=== PATIENT | female | born 1945 | race African-American/Black ===

== ENCOUNTER 2017-07-23 16:16 | Emergency (ER) | payer BC ==
[2017-07-23 16:40] VITALS: BP 147/86
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
== END 2017-07-23 17:12 | disposition home or self-care (01) ==
LOC: UCCORT 16:16
DX: T50.A95A Adverse effect of other bacterial vaccines, initial encounter (principal); Z88.6 Allergy status to analgesic agent; Z88.3 Allergy status to other anti-infective agents; Z88.5 Allergy status to narcotic agent; Z88.0 Allergy status to penicillin; Z88.2 Allergy status to sulfonamides; J45.909 Unspecified asthma, uncomplicated
CPT/HCPCS: 99212; G0463

== ENCOUNTER 2017-10-27 10:01 | Emergency (ER) | payer BC ==
[2017-10-27 10:21] VITALS: BP 137/74
[2017-10-27] MEDS ORDERED: Ondansetron ODT TAB* 4 MG PO ONE (10:57)
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
--- NOTE | 2017-10-28 18:48 | UC ---
- Progress Note Progress Note: Pt called today requesting Flagyl and Zofran written by Dr. Rafael MULLEN. Changed and sent to pharmacy
== END 2017-10-27 11:51 | disposition home or self-care (01) ==
LOC: UCEAST 10:01
DX: K52.9 Noninfective gastroenteritis and colitis, unspecified (principal); I10 Essential (primary) hypertension; Z88.1 Allergy status to other antibiotic agents; Z88.5 Allergy status to narcotic agent; Z88.6 Allergy status to analgesic agent; Z88.0 Allergy status to penicillin; Z88.2 Allergy status to sulfonamides; Z88.8 Allergy status to other drugs, medicaments and biological substances; Z87.891 Personal history of nicotine dependence
CPT/HCPCS: 87502; 99212; A9270-GY; G0463

== ENCOUNTER 2019-03-22 13:15 | Emergency (ER) | payer BC, OTHER ==
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
[2019-03-22] MEDS: Acetaminophen TAB* 325 MG PO ONE (16:27)
[2019-03-22 16:39] VITALS: BP 150/80
== END 2019-03-22 16:36 | disposition home or self-care (01) ==
LOC: UCEAST 13:15
DX: S93.491A Sprain of other ligament of right ankle, initial encounter (principal); I10 Essential (primary) hypertension; M25.551 Pain in right hip; Z88.8 Allergy status to other drugs, medicaments and biological substances; Z88.0 Allergy status to penicillin; Z88.1 Allergy status to other antibiotic agents; Z88.2 Allergy status to sulfonamides; Z91.013 Allergy to seafood; Z87.891 Personal history of nicotine dependence; Y04.8XXA Assault by other bodily force, initial encounter; W18.39XA Other fall on same level, initial encounter; Y92.9 Unspecified place or not applicable
CPT/HCPCS: 99213; A9270-GY; G0463

== ENCOUNTER 2019-08-26 11:34 | Emergency (ER) | payer SELFPAY ==
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
--- OUTSIDE RECORDS SUMMARY | 2019-08-26 12:33 | XMS REPORT | Continuity of Care Document ---
:1945 External Reference #:[id number] Author Name Esteban Gatica NP (transmitted by agent of provider Isis Haskins) Address [address], [place] [address] Care Team Providers Name Role Phone Maria E Purvis M.D. - Family Medicine Care Team Information Short Haul Driver [phone] Karen Egan MD - Cardiovascular Care Team Information Short Haul Driver Disease Problems Active Problems Provider Date Allergic rhinitis due to pollen Pedro Luis Busby M.D. Onset: 04/05/2015 Hyperlipidemia Karen Egan M.D. Onset: 07/16/2015 Essential hypertension Karen Egan M.D. Onset: 07/16/2015 Right bundle branch block Karen Egan M.D. Onset: 10/22/2015 Anxiety state Esteban Gatica NP Onset: 08/11/2017 Allergic asthma without status asthmaticus Esteban Gatica NP Onset: 08/11/2017 Migraine Esteban Gatica NP Onset: 08/11/2017 Sprain of distal tibiofibular ligament Edison Colmenares MD Onset: 03/25/2019 Essential hypertension Karen Egan M.D. Onset: 01/06/2019 Mixed hyperlipidemia Karen Egan M.D. Onset: 04/27/2018 Social History Type Date Description Comments Sex Unknown Cigarette Use Quit 30 Years Ago Tobacco Use Start: Unknown Never Smoked Cigars Tobacco Use Start: Unknown Never Smoked A Pipe Smokeless Tobacco Never Used Smokeless Tobacco ETOH Use consumes 1-2 glasses of wine per day Tobacco Use Start: Unknown End: Patient is a former Patient reports Unknown smoker social cigarette smoking in past. Quit smoking over 30 years ago, reports cigarette use was on average 1 cigarette per month. Smoking Status Reviewed: 07/13/19 Patient is a former Patient reports smoker social cigarette smoking in past. Quit smoking over 30 years ago, reports cigarette use was on average 1 cigarette per month. Exercise Exercises regularly Type/Frequency Allergies, Adverse Reactions, Alerts Active Allergies Reaction Severity Comments Date Penicillin 04/05/2015 Sulfa Antibiotics Urticaria 04/05/2015 Aspirin rectal bleeding 04/05/2015 Darvon 07/11/2015 Atorvastatin migrane headaches 07/11/2015 Erythromycin 07/16/2015 Bananas Nausea and Vomiting Bananas 07/23/2015 Canteloupe Nausea and Vomiting Canteloupe 07/23/2015 Melon Nausea and Vomiting 07/23/2015 Seafood Nausea and Vomiting 07/23/2015 Medications Active Medications SIG Qnty Indications Ordering Date Provider Clonazepam 1/2-1 tab by mouth 30tabs F41.9 Esteban Gatica NP 07/13/2019 0.5mg twice a day as Tablets needed anxiety. Tricor 1 by mouth every 90tabs Karen Egan, 01/24/2019 145mg day M.D. Tablets Wellbutrin XL 3 tablets by mouth 270tabs F32.89 Esteban Gatica NP 07/01/2018 150mg every day Tablets ER 24HR Diclofenac Sodium apply 2 grams to 100gm M25.511 Esteban Gatica NP 06/18/2018 affected area twice 1% Gel daily Vitamin D3 Take One By Mouth 30caps Esteban Gatica NP 02/23/2018 5000Unit Every Day Capsules Nasonex 2 sprays to each 180gm Esteban Gatica NP 02/23/2018 50mcg/Act nostril twice daily Suspension Lidoderm 12 hours on 12 30units Esteban Gatica NP 02/23/2018 5% Patches hours off to affected area as needed Singulair 1 tab PO qd 90tabs Esteban Gatica NP 01/28/2018 10mg Tablets Norvasc Take 1 Tablet By 90tabs Esteban Gatica NP 09/09/2017 5mg Tablets Mouth Once Daily Lexapro take 1 tablet by 90tabs Esteban Gatica NP 08/06/2017 20mg mouth every day Tablets Dulera 2 puff twice daily Unknown 200-5mcg/Act Aerosol Xyzal once daily Unknown 5mg Tablets Xopenex HFA 1 to 2 inhalations Unknown twice daily needed 45mcg/Act Aerosol rescue inhaler B12 1 tab once a day Unknown 5000mcg Tablets Dispers History Medications Tessalon Perles 1-2 by mouth 30caps Esteban Gatica, ZAINAB 04/25/2019 - 100mg three times a day 07/13/2019 Capsules as needed Cheratussin ac 5-10ml every 6 473ml J06.9 Esteban Gatica NP 04/25/2019 - hours as needed 07/13/2019 100-10mg/5ML Solution cough. Lidocaine Viscous HCL gargle 15ml every 100ml J06.9 Esteban Gatica NP 2018 - 6 hours as needed 05/02/2019 2% Solution Xanax 1/2 - 1 tablet by 30tabs F41.9 Esteban Gatica NP 04/12/2019 - 0.25mg Tablets mouth twice daily 07/13/2019 as needed for anxiety Triglide one tab every Karen [place], 01/18/2019 - 160mg Tablets day. ( 0n back M.D. 02/02/2019 order) Immunizations Description No Information Available Vital Signs Date Vital Result Comment 07/13/2019 4:27pm Height 62 inches 5'2" Weight 112.00 lb Heart Rate 84 /min BP Systolic Sitting 148 mmHg BP Diastolic Sitting 95 mmHg BP Systolic Recheck 136 mmHg BP Diastolic Recheck 86 mmHg Body Temperature 97.9 F O2 % BldC Oximetry 97 % BMI (Body Mass Index) 20.5 kg/m2 04/25/2019 3:45pm Height 62 inches 5'2" Weight 116.00 lb Heart Rate 83 /min BP Systolic 127 mmHg BP Diastolic 79 mmHg Body Temperature 97.9 F O2 % BldC Oximetry 99 % BMI (Body Mass Index) 21.2 kg/m2 Results Test Date Facility Test Result H/L Range Note Lipid Profile 05/30/2019 [facility] Triglycerides 267 mg/dL 1 (Trig/Chol/HDL) [address] [place] [address] [phone] Cholesterol 239 mg/dL 2 HDL Cholesterol 61.6 mg/dL 3 LDL Cholesterol 124 mg/dL 4 1 Desirable: <150 Borderline High: 150-199 High: 200-499 Very High: >500 2 Desirable: <200 Borderline High: 200-239 High: >239 3 Low: <40 Desirable: 40-60 High: >60 4 Desirable: <100 Near Optimal: 100-129 Borderline High: 130-159 High: 160-189 Very High: >189 Procedures Description No Information Available Medical Devices Description No Information Available Encounters Type Date Location Provider Dx Diagnosis Office Visit 04/25/2019 [facility] Esteban Gatica NP J06.9 Acute upper 3:40p Medicine - [facility] respiratory infection, unspecified Office Visit 04/12/2019 [facility] Internal Esteban Gatica NP Z01.818 Encounter for other 10:20a Medicine - [facility] preprocedural examination H26.9 Unspecified cataract I10 Essential (primary) hypertension F41.9 Anxiety disorder, unspecified J45.20 Mild intermittent asthma, uncomplicated Office Visit 03/25/2019 [facility] Edisonboby Colmenares, S93.431A Sprain of 11:00a Services Of tibiofibular C.M.A. ligament of right ankle, init encntr Office Visit 02/03/2019 [facility] Internal Esteban Gatica NP Z01.818 Encounter for 4:20p Medicine - [facility] other preprocedural examination H26.9 Unspecified cataract I10 Essential (primary) hypertension F41.9 Anxiety disorder, unspecified F32.89 Other specified depressive episodes J45.20 Mild intermittent asthma, uncomplicated Assessments Date Code Description Provider 07/13/2019 Z01.818 Encounter for other preprocedural examination Esteban En , RECORDS MANAGEMENT DIRECTOR 07/13/2019 H26.9 Unspecified cataract Esteban En, RECORDS MANAGEMENT DIRECTOR 07/13/2019 F41.9 Anxiety disorder, unspecified Esteban En, RECORDS MANAGEMENT DIRECTOR 07/13/2019 I10 Essential (primary) hypertension Esteban En, RECORDS MANAGEMENT DIRECTOR 07/13/2019 J45.20 Mild intermittent asthma, uncomplicated Esteban En, RECORDS MANAGEMENT DIRECTOR 07/13/2019 M25.519 Pain in unspecified shoulder Esteban En, RECORDS MANAGEMENT DIRECTOR 04/25/2019 J06.9 Acute upper respiratory infection, unspecified Esteban En, RECORDS MANAGEMENT DIRECTOR 04/12/2019 Z01.818 Encounter for other preprocedural examination Esteban En , RECORDS MANAGEMENT DIRECTOR 04/12/2019 H26.9 Unspecified cataract Esteban En, RECORDS MANAGEMENT DIRECTOR 04/12/2019 I10 Essential (primary) hypertension Esteban En, RECORDS MANAGEMENT DIRECTOR 04/12/2019 F41.9 Anxiety disorder, unspecified Esteban En, RECORDS MANAGEMENT DIRECTOR 04/12/2019 J45.20 Mild intermittent asthma, uncomplicated Esteban En, RECORDS MANAGEMENT DIRECTOR 03/25/2019 S93.431A Sprain of tibiofibular ligament of right ankle, Edison Colmenares MD initial enco 02/03/2019 Z01.818 Encounter for other preprocedural examination Esteban En , RECORDS MANAGEMENT DIRECTOR 02/03/2019 H26.9 Unspecified cataract Esteban En, RECORDS MANAGEMENT DIRECTOR 02/03/2019 I10 Essential (primary) hypertension Esteban En, RECORDS MANAGEMENT DIRECTOR 02/03/2019 F41.9 Anxiety disorder, unspecified Esteban En, RECORDS MANAGEMENT DIRECTOR 02/03/2019 F32.89 Other specified depressive episodes Esteban En, RECORDS MANAGEMENT DIRECTOR 02/03/2019 J45.20 Mild intermittent asthma, uncomplicated Esteban En, ZAINAB Plan of Treatment 07/13/2019 - Esteban Gatica NPZ01.818 Encounter for other preprocedural mpaukvidlgpW42.9 Unspecified uitcbxiyQ23.9 Anxiety disorder, unspecifiedNew Medication:Clonazepam 0.5 mg - 1/2-1 tab by mouth twice a day as needed anxiety.Comments:I have prescribed the clonazepam that we discussed. This may make you tired.I10 Essential (primary) rxrxlzgepgstZ47.20 Mild intermittent asthma, kooizcgyevqbeF59.519 Pain in unspecified shoulderNew Therapy:Physical Therapy Functional Status Description No Information Available Mental Status Description No Information Available Referrals Description No Information Available
--- OUTSIDE RECORDS SUMMARY | 2019-08-26 12:33 | XMS REPORT | Continuity of Care Document ---
:1945 External Reference #:[id number] Author Name Pedro Luis Busby M.D. Address [address] [place] [address] Care Team Providers Name Role Phone Esteban Gatica NP - Nurse Practitioner Care Team Information Vessel Ordinary Seaman [phone] Problems Active Problems Provider Date Essential hypertension Pedro Luis Busby M.D. Onset: 04/06/2012 Acute upper respiratory infection Pedro Luis Busby M.D. Onset: 2014 Acute laryngitis Pedro Luis Busby M.D. Onset: 09/25/2014 Exacerbation of asthma Pedro Luis Busby M.D. Onset: 08/15/2014 Acute bronchitis Pedro Luis Busby M.D. Onset: 02/28/2014 Esophageal dysphagia Pedro Luis Busby M.D. Onset: 05/25/2013 Allergic rhinitis Pedro Luis Busby M.D. Onset: 05/25/2013 Asthma without status asthmaticus Pedro Luis Busby M.D. Onset: 2012 Cough variant asthma Pedro Luis Busby M.D. Onset: 04/06/2012 Social History Type Date Description Comments Sex Unknown Tobacco Use Start: Unknown End: Former Social Smoker Unknown Smoking Status Reviewed: 08/07/19 Former Social Smoker Tobacco Use Start: Unknown Never Smoked Cigars Tobacco Use Start: Unknown Never Smoked A Pipe Smokeless Tobacco Never Used Smokeless Tobacco ETOH Use Does not drink alcohol Tobacco Use Start: Unknown End: Patient is a former smoker Quit May 2012 Unknown Allergies, Adverse Reactions, Alerts Active Allergies Reaction Severity Comments Date Darvon 04/06/2012 Aspirin 04/06/2012 Oxiconton 04/06/2012 Erythromycin 04/06/2012 Crestor 08/15/2014 Flu Virus Vaccine 01/12/2015 Medications Active Medications SIG Qnty Indications Ordering Provider Date Singulair take 1 tablet by 90tabs J45.909 Pedro Luis Peraza 10/11/2018 10mg mouth every day Ernesto Busby Tablets Dulera 2 puff twice a 3months Pedro Luis Peraza 04/03/2014 200-5mcg/Act day Ernesto Busby Aerosol Xopenex HFA 2 puffs as needed 2units J45.991 Pedro Luis Peraza 08/16/2013 45mcg/Act Ernesto Busby Aerosol Norvasc daily Unknown 5mg Nasonex instill 2 sprays 3units Pedro Luis Peraza 50mcg/Act in each nostril Ernesto Busby Suspension every day Lexapro daily En STAINED GLASS INSTALLER, Esteban 20mg Tablets Xyzal Allergy 24HR 1 by mouth every 90tabs Pedro Luis Peraza day Ernesto Busby 5mg Tablets Wellbutrin XL TK 1 T PO qd For Unknown 150mg 1 Week. Increase Tablets ER 24HR To TK 2 TS PO qd Benzonatate 1-2 caps 3 times Unknown 100mg daily Capsules Xanax 1-2 tabs twice En LAMB, Esteban 0.25mg Tablets daily Klonopin TK 1/2 To 1 T PO Unknown 0.5mg bid prn. MDD 2 TS Tablets Vitamin B12 1 by mouth every Unknown 500mcg day Tablets Cheratussin ac as needed Unknown 100-10mg/5ML Solution Tricor 1 by mouth daily Unknown 145mg Tablets Diclofenac Sodium apply 2 grams to Unknown 1% affected area Gel History Medications Astepro instill 1 spray 30units J30.89 Pedro Luis Peraza 04/22/2019 - 0.15% each nostril Ernesto Busby 08/07/2019 Solution every day Immunizations CPT Code Status Date Vaccine Lot # [id number] Refused 01/12/2015 Prevnar 13 For Intramuscular Use 37779 Refused 01/12/2015 Influenza Virus Vaccine, 3 Years Of Age And Above, Intramuscular Vital Signs Date Vital Result Comment 08/08/2019 1:49pm Weight 108.00 lb Weight 48.989 kg Height 62.50 inches 5'2.50" Height in cm's 158.8 cm BMI (Body Mass Index) 19.4 kg/m2 04/22/2019 12:08pm Weight 110.00 lb Weight 49.896 kg Height 62.50 inches 5'2.50" Height in cm's 158.8 cm BMI (Body Mass Index) 19.8 kg/m2 Results Description No Information Available Procedures Date Code Description Status 04/22/2019 83446 Nasal Endoscopy, Diagnostic Completed Medical Devices Description No Information Available Encounters Type Date Location Provider Dx Diagnosis Office Visit 08/08/2019 [place] Pedro Luis Erazo Other allergic 1:30p 10/26/07 Ernesto Busby rhinitis J45.40 Moderate persistent asthma, uncomplicated B08.5 Enteroviral vesicular pharyngitis Office Visit 04/22/2019 11:15a [place] 10/26/07 Ciarra Erazo Other allergic YOLIS Rosas rhinitis J45.40 Moderate persistent asthma, uncomplicated H69.82 Other specified disorders of Eustachian tube, left ear Assessments Date Code Description Provider 08/08/2019 J30.89 Other allergic rhinitis Pedro Luis Busby M.D. 08/08/2019 J45.40 Moderate persistent asthma, Pedro Luis Busby M.D. uncomplicated 08/08/2019 B08.5 Enteroviral vesicular pharyngitis Pedro Luis Busby M.D. 04/22/2019 J30.89 Other allergic rhinitis Ciarra Rosas PA-C 04/22/2019 J45.40 Moderate persistent asthma, Ciarra Rosas PA-C uncomplicated 04/22/2019 H69.82 Other specified disorders of Eustachian Ciarra Rosas PA-C tube, left ear Plan of Treatment No Information Available Functional Status Description No Information Available Mental Status Description No Information Available Referrals Description No Information Available
[2019-08-26] MEDS ORDERED: oxyCODONE/Acetamin 5/325 MG* TAB PO ONE (14:41)
[2019-08-26 16:22] VITALS: BP 150/96
== END 2019-08-26 16:13 | disposition home or self-care (01) ==
LOC: ED 11:34
DX: S06.0X9A Concussion with loss of consciousness of unspecified duration, initial encounter (principal); S16.1XXA Strain of muscle, fascia and tendon at neck level, initial encounter; S70.01XA Contusion of right hip, initial encounter; M81.0 Age-related osteoporosis without current pathological fracture; M50.30 Other cervical disc degeneration, unspecified cervical region; W03.XXXA Other fall on same level due to collision with another person, initial encounter; Y92.212 Middle school as the place of occurrence of the external cause; Y99.0 Civilian activity done for income or pay; E78.00 Pure hypercholesterolemia, unspecified; I10 Essential (primary) hypertension; Z87.891 Personal history of nicotine dependence; Z79.899 Other long term (current) drug therapy; Z88.6 Allergy status to analgesic agent; Z88.1 Allergy status to other antibiotic agents; Z88.5 Allergy status to narcotic agent; Z88.0 Allergy status to penicillin; Z88.2 Allergy status to sulfonamides; Z88.8 Allergy status to other drugs, medicaments and biological substances
CPT/HCPCS: 70450; 72125; 72192; 99283; A9270-GY

== ENCOUNTER 2019-11-02 14:33 | Emergency (ER) | payer OTHER ==
--- NOTE | 2019-11-02 15:30 | ED ---
Headache - HPI Summary HPI Summary: This patient is a 74 year old female presenting to [facility] with a chief complaint of headaches. She states she fell at work 2 months ago and is having headaches. She states she is not comfortable walking and driving because she gets blurred vision. She states when she fell 2 months ago she hit her head against the wall on the way down. She states she has been doing PT for her back which was also injured but workers compensation has not approved PT for her neck and head. She has attempted to see a neurologist but they were unable to see her for 2 months. She denies vomiting. Medications reviewed, allergies noted. She reports Hx of HTN. - History Of Current Complaint Chief Complaint: EDHeadache Stated Complaint: CONCUSSION,FALLING PER PT Time Seen by Provider: 11/02/19 15:19 Hx Obtained From: Patient Onset/Duration: Started weeks ago Timing: Weeks - Allergies/Home Medications Allergies/Adverse Reactions: Allergies Allergy/AdvReac Type Severity Reaction Status Date / Time aspirin Allergy Severe GI bleed Verified 11/02/19 14:40 Penicillins Allergy Severe Rash Verified 11/02/19 14:40 propoxyphene Allergy Severe Nausea Verified 11/02/19 14:40 erythromycin base Allergy Intermediate Nausea Verified 11/02/19 14:40 hydrocodone Allergy Intermediate Hallucinati Verified 11/02/19 14:40 ons Sulfa (Sulfonamide Allergy Intermediate Rash Verified 11/02/19 14:40 Antibiotics) seafood Allergy Severe Rash And Uncoded 11/02/19 14:40 Itching GENERIC DRUGS Allergy Mild See Comment Uncoded 11/02/19 14:40 Home Medications: Home Medications Hydrocodone/Acetaminophen [Hydrocodone/Acetaminophen 5-325 mg] 1 tab PO Q6H 06/14 [History Confirmed 11/02/19] Levalbuterol HFA INHALER* [Xopenex Hfa Inhaler*] 1 - 2 puff INH BID PRN [History Confirmed 11/02/19] PMH/Surg Hx/FS Hx/Imm Hx Endocrine/Hematology History: Denies: Hx Diabetes, Hx Thyroid Disease Cardiovascular History: Reports: Hx Hypercholesterolemia, Hx Hypertension Denies: Hx Pacemaker/ICD Respiratory History: Reports: Hx Asthma Denies: Hx Chronic Obstructive Pulmonary Disease (COPD) GI History: Denies: Hx Ulcer History: Denies: Hx Renal Disease Musculoskeletal History: Reports: Hx Arthritis Sensory History: Reports: Hx Contacts or Glasses Denies: Hx Hearing Aid Opthamlomology History: Reports: Hx Contacts or Glasses Neurological History: Reports: Hx Migraine Denies: Hx Seizures Psychiatric History: Denies: Hx Panic Disorder - Surgical History Surgery Procedure, Year, and Place: Rt wrist surgeries after fractures 1998 x 3 ; breast reduction; wisdom teeth. right rotator cuff repair Infectious Disease History: No Infectious Disease History: Denies: Hx Clostridium Difficile, Hx Hepatitis, Hx Human Immunodeficiency Virus (HIV), Hx of Known/Suspected MRSA, Hx Shingles, Hx Tuberculosis, Hx Known/ Suspected VRE, Hx Known/Suspected VRSA, History Other Infectious Disease, Traveled Outside the [place] in Last 30 Days - Family History Known Family History: Positive: Cardiac Disease, Hypertension - Social History Alcohol Use: none since fall Alcohol Amount: 1 glass wine per day Substance Use Type: Reports: None Smoking Status (MU): Former Smoker Have You Smoked in the Last Year: No Review of Systems Positive: Blurred Vision Positive: Headache All Other Systems Reviewed And Are Negative: Yes Physical Exam - Summary Physical Exam Summary: Constitutional: Well-developed, Well-nourished, Alert. (-) Distressed Skin: Warm, Dry HENT: Normocephalic; Atraumatic Eyes: Conjunctiva normal Neck: Musculoskeletal ROM normal neck. (-) JVD, (-) Stridor, (-) Tracheal deviation Cardio: Rhythm regular, rate normal, Heart sounds normal; Intact distal pulses; Radial pulses are 2+ and symmetric. (-) Murmur Pulmonary/Chest wall: Effort normal. (-) Respiratory distress, (-) Wheezes, (-) Rales Abd: Soft, (-) tenderness, (-) Distension, (-) Guarding, (-) Rebound Musculoskeletal: (-) Edema Lymph: (-) Cervical adenopathy Neuro: Alert, Oriented x3, Strength normal, Cranial nerves II-XII are grossly intact. (-) Dysmetria, (-) Nystagmus, (-) Ataxia by finger to nose testing, (-) Sensory deficit. Psych: Mood and affect Normal Triage Information Reviewed: Yes Vital Signs On Initial Exam: Initial Vitals Temp Pulse Resp BP Pulse Ox 99.0 F 81 16 150/109 99 11/02/19 14:36 11/02/19 14:36 11/02/19 14:36 11/02/19 14:36 11/02/19 14:36 Vital Signs Reviewed: Yes Procedures - Sedation Patient Received Moderate/Deep Sedation with Procedure: No Diagnostics - Vital Signs Vital Signs Temp Pulse Resp BP Pulse Ox 11/02/19 14:36 99.0 F 81 16 150/109 99 - Laboratory Lab Statement: Any lab studies that have been ordered have been reviewed, and results considered in the medical decision making process. National Institutes Of Health - NIH Scale Level of Consciousness: Alert/Keenly Responsive Ask Patient the Month and His/Her Age: Both Correct Ask Pt to Open/Close Eyes and Orthophotography Technician/Release Non-Paretic Hand: Both Correctly Best Gaze (Only Horizontal Eye Movement): Normal Visual Field Testing: No Visual Loss Facial Paresis-Pt to Smile & Close Eyes or Grimace Symmetry: Normal/Symmetrical Motor Function - Right Arm: No Drift-Holds 10 Seconds Motor Function - Left Arm: No Drift-Holds 10 Seconds Motor Function - Right Leg: No Drift-Holds 10 Seconds Motor Function - Left Leg: No Drift-Holds 10 Seconds Limb Ataxia-Must be out of Proportion to Weakness Present: Absent Sensory (Use Pinprick to Test Arms/Legs/Trunk/Face): Normal Best Language (Describe Picture, Name Items): No Aphasia Dysarthria (Read Several Words): Normal Extinction and Inattention: No Abnormality Total Score: 0 Headache Course/Dx - Course Course Of Treatment: Patient is here with chronic concussion symptoms following a fall in August. Patient is doing daily physical therapy for this but has not seen a neurologist. Patient has a normal neurologic exam. Neurology was called and evaluated the patient and recommended starting nortriptyline 10 mg at night. Patient is referred to the [facility] concussion clinic. - Diagnoses Provider Diagnoses: Concussion - Physician Notifications Discussed Care Of Patient With: Julissa Malagon - Neurology Time Discussed With Above Provider: 15:40 Instructed by Provider To: MD Will See In ED Discharge ED - Sign-Out/Discharge Documenting (check all that apply): Patient Departure - Discharge - Discharge Plan Condition: Stable Disposition: HOME Prescriptions: Nortriptyline CAP* [Nortriptylline CAP*] 10 mg PO BEDTIME 30 Days #30 cap Patient Education Materials: Concussion (ED) Referrals: Esteban Gatica [facility] [Primary Care Provider] - Additional Instructions: Follow up with [facility] Concussion Management program. Fill out the form with your primary care provider. [facility] Concussion Management Program Phone Number: [phone] Take your medicine as prescribed. Follow up with PCP. Follow up with one-sided weakness, slurred speech, change in vision. - Billing Disposition and Condition Condition: STABLE Disposition: Home - Attestation Statements Document Initiated by Scribe: Yes Documenting Scribe: Rodolfo Garza Provider For Whom Scribe is Documenting (Include Credential): Vern Jamison MD Scribe Attestation: Rodolfo Botello, scribed for Vern Jamison MD on 11/02/19 at 1916. Scribe Documentation Reviewed: Yes Provider Attestation: The documentation as recorded by the Rodolfo law accurately reflects the service I personally performed and the decisions made by me, Vern Jamison MD Status of Scribe Document: Viewed
[2019-11-02 17:18] VITALS: BP 163/97
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
== END 2019-11-02 17:20 | disposition home or self-care (01) ==
LOC: ED 14:33
DX: S06.0X9A Concussion with loss of consciousness of unspecified duration, initial encounter (principal); W19.XXXA Unspecified fall, initial encounter; Y92.89 Other specified places as the place of occurrence of the external cause; Y99.0 Civilian activity done for income or pay; E78.00 Pure hypercholesterolemia, unspecified; I10 Essential (primary) hypertension; J45.909 Unspecified asthma, uncomplicated; Z87.891 Personal history of nicotine dependence; Z79.899 Other long term (current) drug therapy; Z88.0 Allergy status to penicillin; Z88.1 Allergy status to other antibiotic agents; Z88.2 Allergy status to sulfonamides; Z88.5 Allergy status to narcotic agent; Z88.8 Allergy status to other drugs, medicaments and biological substances
CPT/HCPCS: 99282

== ENCOUNTER 2020-01-13 09:21 | Emergency (ER) | payer BC, OTHER ==
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
[2020-01-13 10:46] LABS: ABS Lymphocytes 1.4 10^3/ul (1.0-4.8); ABS Monocytes 0.6 10^3/ul (0-0.8); Eosinophil % 0.3 %; Hematocrit 37 % (35-47); Hemoglobin 12.5 g/dL (12.0-16.0); Lymphocyte % 23.1 %; Mean Corpuscular HGB Conc 34 g/dL (31-36); Mean Corpuscular Hemoglobin 33 pg (27-31); Mean Corpuscular Volume 98 fL (80-97); Mean Platelet Volume 8.1 fL (7.4-10.4); Nucleated Red Blood Cells % 0.1; Platelet Count 319 10^3/uL (150-450); Red Blood Count 3.77 10^6 /uL (3.70-4.87); Red Cell Distribution Width 14 % (10-15)
[2020-01-13 10:49] LABS: Urine Appearance Turbid; Urine Bilirubin Negative (Negative); Urine Blood 1+ (Negative); Urine Color Yellow; Urine Glucose Negative (Negative); Urine Ketones Negative (Negative); Urine Nitrite Negative (Negative); Urine Protein Negative (Negative); Urine Specific Gravity 1.016 (1.010-1.030); Urine Urobilinogen Negative (Negative)
[2020-01-13 10:57] LABS: Urine Bacteria Absent (Absent); Urine Red Blood Cell 2+(6-10/hpf) (Absent); Urine Squamous Epithelial Cell Present (Absent); Urine Transitional Epithelial Present (Absent); Urine White Blood Cell 1+(6-10/hpf) (Absent)
[2020-01-13 10:57] LABS: Albumin/Globulin Ratio 1.4 (1-3); BUN/Creatinine Ratio 13.9 (8-20); Calcium 9.2 mg/dL (8.6-10.3); EGFR African American 60.3 (>60); EGFR Non-African American 49.9 (>60); Globulin 2.9 g/dL (2-4); Potassium 3.5 mmol/L (3.5-5.0); Total Bilirubin 0.6 mg/dL (0.2-1.0); Total Protein 6.9 g/dL (6.4-8.9)
[2020-01-13 11:42] LABS: Hepatitis C Antibody Negative (Negative)
[2020-01-13 14:20] LABS: C Reactive Protein 1.85 mg/L (<8.01)
[2020-01-13 15:20] LABS: Urine Benzodiazepine Screen None Detected (None Detect); Urine Opiates Screen None Detected (None Detect)
[2020-01-13 15:35] VITALS: BP 149/86
[2020-01-13 16:28] LABS: Erythrocyte Sed Rate 6 mm/Hr (0-29)
--- NOTE | 2020-01-13 16:50 | EEG ---
ELECTROENCEPHALOGRAPHY REPORT: DATE OF STUDY: 01/13/20 ORDERED BY: RULA Dang READ ON: 01/13/20 CLINICAL PROBLEM: Mrs. Griffiths is a 74-year-old female who has a history of post concussive syndrome with frequent falls. This EEG was requested to evaluate for epileptiform abnormalities or electrogr aphic seizures. MEDICATIONS: 1. Klonopin. 2. Wellbutrin. 3. Lexapro. 4. Norvasc. CLINICAL STATE: Awake and drowsy. REPORT: The most prominent feature of this recording were rare left frontotemporal paroxysmal slowin g with a frequency of 1-3 hertz superimposed with 3 to 5 hertz delta and theta slowing. This lasted approximately 1 to 2 seconds. Otherwise, the background showed appropriate organization with clearly defined anterior-posterior voltage and frequency gradients. There was a well-defined posterior maritza nant rhythm of 8.5 hertz, which was symmetrical and showed normal reactivity. Attenuation of the occi pital rhythm accompanied drowsiness. There were intermittent right and left T5 and T6 arciform like waves during drowsiness that resembled wicket waves. The voltage was less than 50 microvolts. Throughout the recording, there were no clear epileptiform discharges. CLINICAL IMPRESSION: This is an abnormal awake and drowsy EEG due to the presence of rare left inter mittent and polymorphic slowing in the frontotemporal region. These findings are suggestive of a foca l neuronal dysfunction in that region. Otherwise, the waking background was normal. [id number]/[facility] #: [id number]
[2020-01-13 17:41] LABS: TSH (Thyroid Stimulating Horm) 1.84 mcIU/mL (0.34-5.60)
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
== END 2020-01-13 15:25 | disposition home or self-care (01) ==
LOC: ED 09:21
DX: S09.90XA Unspecified injury of head, initial encounter (principal); G31.84 Mild cognitive impairment of uncertain or unknown etiology; E78.00 Pure hypercholesterolemia, unspecified; I10 Essential (primary) hypertension; W19.XXXA Unspecified fall, initial encounter; Z91.81 History of falling; Y92.9 Unspecified place or not applicable; Z87.891 Personal history of nicotine dependence; Z79.899 Other long term (current) drug therapy; Z88.0 Allergy status to penicillin; Z88.2 Allergy status to sulfonamides; Z88.6 Allergy status to analgesic agent
CPT/HCPCS: 36415; 70450; 72125; 80053; 80307; 81003; 81015; 82607; 84443; 85025; 85652; 86140; 86803; 87086; 93005; 95816; 99283; G0480

== ENCOUNTER 2020-10-23 16:15 | Observation (INO) ==
[2020-10-23 17:00] LABS: ABS Lymphocytes 1.3 10^3/ul (1.0-4.8); ABS Monocytes 0.7 10^3/ul (0-0.8); ABS Neutrophils 5.6 10^3/ul (1.5-7.7); Eosinophil % 0.4 %; Hematocrit 36 % (35-47); Hemoglobin 12.3 g/dL (12.0-16.0); Lymphocyte % 16.7 %; Mean Corpuscular HGB Conc 34 g/dL (31-36); Mean Corpuscular Hemoglobin 34 pg (27-31); Mean Corpuscular Volume 98 fL (80-97); Nucleated Red Blood Cells % 0.1; Platelet Count 284 10^3/uL (150-450); Red Blood Count 3.66 10^6 /uL (3.70-4.87); Red Cell Distribution Width 13 % (10-15); White Blood Count 7.6 10^3/uL (3.5-10.8)
[2020-10-23 17:17] LABS: Albumin 4.1 g/dL (3.2-5.2); Albumin/Globulin Ratio 1.6 (1-3); BUN/Creatinine Ratio 18.3 (8-20); Calcium 9.1 mg/dL (8.6-10.3); EGFR African American 62.9 (>60); EGFR Non-African American 51.9 (>60); Globulin 2.6 g/dL (2-4); Magnesium 2.2 mg/dL (1.9-2.7); Potassium 3.9 mmol/L (3.5-5.0); Total Bilirubin 0.4 mg/dL (0.2-1.0); Total Protein 6.7 g/dL (6.4-8.9)
[2020-10-23 17:53] LABS: TSH Ultra Thyroid Stim Horm 1.65 mcIU/mL (0.34-5.60)
[2020-10-23] MEDS ORDERED: NS 0.9% 1000 ml BAG 1,000 ML IV ONE (19:17)
[2020-10-23 19:49] LABS: Urine Appearance Clear; Urine Bilirubin Negative (Negative); Urine Blood Negative (Negative); Urine Color Colorless; Urine Glucose Negative (Negative); Urine Ketones Negative (Negative); Urine Nitrite Negative (Negative); Urine Protein Negative (Negative); Urine Urobilinogen Negative (Negative)
[2020-10-23] MEDS ORDERED: Ondansetron 4 mg VIAL 2 MG/ML 2 ml VIAL IV PRN (20:03)
[2020-10-23 20:38] LABS: Activated Partial Thrombo Time 28.6 seconds (26.0-38.0); INR 1.06 (0.82-1.09)
[2020-10-23] MEDS ORDERED: Gadoteridol (CONTRAST) 279.3 MG/ML 10 ML IV ONE (20:44)
[2020-10-23] MEDS ORDERED: Levalbuterol HFA INHALER MDI INH PRN (20:47)
[2020-10-23 20:48] LABS: C Reactive Protein 4.95 mg/L (<8.01)
[2020-10-23] MEDS: Lidocaine Patch REMOVE PATCH PATCH OFF SCH (21:36)
[2020-10-23] MEDS: Heparin 5000 UNITS/ML 1 mL VIAL SUBCUT SCH (21:48)
[2020-10-23] MEDS: Mometasone/Formoter 200/5 MDI INH SCH (22:25)
[2020-10-24] MEDS: Heparin 5000 UNITS/ML 1 mL VIAL SUBCUT SCH ×3 (05:17→20:39)
[2020-10-24 06:19] LABS: ABS Lymphocytes 1.6 10^3/ul (1.0-4.8); ABS Monocytes 0.5 10^3/ul (0-0.8); ABS Neutrophils 2.9 10^3/ul (1.5-7.7); Eosinophil % 0.8 %; Hematocrit 34 % (35-47); Hemoglobin 11.6 g/dL (12.0-16.0); Lymphocyte % 32.5 %; Mean Corpuscular HGB Conc 34 g/dL (31-36); Mean Corpuscular Hemoglobin 33 pg (27-31); Mean Corpuscular Volume 97 fL (80-97); Mean Platelet Volume 7.5 fL (7.4-10.4); Platelet Count 253 10^3/uL (150-450); Red Blood Count 3.52 10^6 /uL (3.70-4.87); Red Cell Distribution Width 13 % (10-15)
[2020-10-24 06:50] LABS: BUN/Creatinine Ratio 14.1 (8-20); Calcium 8.5 mg/dL (8.6-10.3); EGFR African American 87.6 (>60); EGFR Non-African American 72.4 (>60); Potassium 3.4 mmol/L (3.5-5.0)
[2020-10-24] MEDS: Mometasone/Formoter 200/5 MDI INH SCH ×2 (07:29→21:04)
[2020-10-24] MEDS: Lidocaine PATCH 5% PATCH TRANSDERM SCH (10:32)
[2020-10-24] MEDS ORDERED: Potassium Chlor 20 meq TAB.ER PO ONE (19:53)
[2020-10-24] MEDS: Lidocaine Patch REMOVE PATCH PATCH OFF SCH (20:42)
[2020-10-25] MEDS: Heparin 5000 UNITS/ML 1 mL VIAL SUBCUT SCH ×2 (05:19→13:29)
[2020-10-25 06:25] LABS: ABS Lymphocytes 1.9 10^3/ul (1.0-4.8); ABS Monocytes 0.5 10^3/ul (0-0.8); ABS Neutrophils 2.6 10^3/ul (1.5-7.7); Eosinophil % 0.7 %; Hematocrit 35 % (35-47); Hemoglobin 11.7 g/dL (12.0-16.0); Lymphocyte % 37.4 %; Mean Corpuscular HGB Conc 34 g/dL (31-36); Mean Corpuscular Hemoglobin 33 pg (27-31); Mean Corpuscular Volume 98 fL (80-97); Mean Platelet Volume 8.4 fL (7.4-10.4); Platelet Count 256 10^3/uL (150-450); Red Blood Count 3.52 10^6 /uL (3.70-4.87); Red Cell Distribution Width 13 % (10-15)
[2020-10-25 06:46] LABS: BUN/Creatinine Ratio 13.8 (8-20); Calcium 8.6 mg/dL (8.6-10.3); EGFR African American 85.1 (>60); EGFR Non-African American 70.3 (>60); Potassium 3.5 mmol/L (3.5-5.0)
[2020-10-25] MEDS: Lidocaine PATCH 5% PATCH TRANSDERM SCH (08:50)
[2020-10-25] MEDS: Mometasone/Formoter 200/5 MDI INH SCH ×2 (09:45→13:28)
[2020-10-25 15:17] VITALS: BP 126/79
== END 2020-10-25 18:00 | disposition home or self-care (01) ==
LOC: ED 16:15 → MEDTELE 16:15
PROVIDERS: ADMIT Nurse Practitioner Family; ATTEND Internal Medicine